=== PATIENT | male | born 1960 | race Caucasian/White ===

== ENCOUNTER 2021-01-16 15:22 | Emergency (ER) | payer BC ==
[~2021-01-16] VITALS: Ht 172.7 cm; Wt 73.5 kg
== END 2021-01-16 16:54 | disposition home or self-care (01) ==
LOC: EDBD 15:22 → ER 15:22
DX: S66.222A Laceration of extensor muscle, fascia and tendon of left thumb at wrist and hand level, initial encounter (principal); Z23 Encounter for immunization; Z88.0 Allergy status to penicillin; W27.0XXA Contact with workbench tool, initial encounter
CPT/HCPCS: 12002; 73130; 90471; 90714; 99283-25